=== PATIENT | male | born 1950 | race Caucasian/White ===

== ENCOUNTER 2017-06-01 05:35 | Outpatient (CLI) | payer BC ==
[~2017-06-01] VITALS: Ht 188 cm; Wt 104.3 kg
[~2017-06-01 05:35] MED LIST: FINA5TAB6 PO; ROSU20TA14 PO; TMSL.4C PO
== END 2017-06-01 11:25 | disposition home or self-care (01) ==
LOC: ENDO 05:35
PROVIDERS: ATTEND Surgery
DX: Z86.010 Personal history of colon polyps (principal); Z80.0 Family history of malignant neoplasm of digestive organs; Z53.9 Procedure and treatment not carried out, unspecified reason

== ENCOUNTER 2017-06-06 08:05 | Day surgery (SDC) | payer BC ==
[~2017-06-06] VITALS: Ht 188 cm; Wt 104.3 kg
[2017-06-06 08:10] VITALS: BP 132/84
[2017-06-06] MEDS ORDERED: NS IV 500 ML 500 ML IV PRN (08:26)
--- NOTE | 2017-06-06 08:38 | Conscious Sedation/ASA ---
Conscious Sedation Pre-Proced Time Reviewed: 08:37 ASA Class: 2 Airway Mallampati Classification: ([place] appropriate class) I. II. III, IV Lungs Heart ASA score ASA 1: a normal healthy patient ASA 2: a patient with a mild systemic disease (mid diabetes, controlled hypertension, obesity ASA 3: a patient with a severe systemic disease that limits activity (angina , COPD, prior Myocardial infarction) ASA 4: a patient with an incapacitating disease that is a constant threat to life (CHF, renal failure) ASA 5: a moribund patient not expected to survive 24 hrs. (ruptured aneurysm) ASA 6: a declared brain patient whose organs are being harvested. For emergent operations, add the letter E after the classification Grade 2 Sedation Plan: Discussed options with patient/fam Note The patient is an appropriate candidate to undergo the planned procedure, sedation, and anesthesia. The patient immediately re-assessed prior to indication. BAO CLARK MD Jun 06, 2017 8:38 am
--- NOTE | 2017-06-06 08:43 | History & Physicial ---
History of Present Illness History of Present Illness Reason for visit/HPI This gentleman presents for a screening colonoscopy. He reports that this is his fifth or sixth colonoscopy. He has a personal history of polyps, hemorrhoids , and diverticulosis. His father of colon cancer at age 80. Date of Admission 06/06/2017 Date Seen by Provider: Jun 06, 2017 I consulted on this patient on 06/06/17 08:37 Attending Physician Iván Amador MD Admitting Physician Kyaw Pierce MD Consult Allergies and Home Medications Allergies Coded Allergies: Iodinated Contrast- Oral and IV Dye (Unverified Allergy, Unknown, HIVES, ) Home Medications Finasteride 5 Mg Tablet, 5 MG PO HS, (Reported) Rosuvastatin Calcium 20 Mg Tablet, 20 MG PO HS, (Reported) Tamsulosin Hcl 0.4 Mg Cap, 0.4 MG PO HS, (Reported) Past Impyfgr-Dqlxii-Enardl Hx Patient Social History Marrital Status: Employed/Student: retired Recent Foreign Travel: No Contact w/other who traveled: No Recent Hopitalizations: No Immunizations Up To Date Date of Pneumonia Vaccine: Jul 24, 2009 Date of Influenza Vaccine: Jul 05, 2016 Seasonal Allergies Seasonal Allergies: No Reproductive System Hx Reproductive Disorders: No Sexually Transmitted Disease: No HIV/AIDS: No Gastrointestinal Polyps HEENT Loss of Vision: Denies Hearing Impairment: Denies Blood Transfusions Adverse Reaction to a Blood Tr: No (N/A) Constitutional: no symptoms reported EENTM: no symptoms reported Respiratory: no symptoms reported Cardiovascular: no symptoms reported Gastrointestinal: no symptoms reported Genitourinary: no symptoms reported Musculoskeletal: no symptoms reported Skin: no symptoms reported Psychiatric/Neurological: No Symptoms Reported All Other Systems Reviewed Negative Unless Noted: Yes Physical Exam Vital Signs Capillary Refill : General Appearance: No Apparent Distress, WD/WN Eyes: Bilateral Eye Normal Inspection, Bilateral Eye PERRL, Bilateral Eye EOMI HEENT: PERRL/EOMI, TMs Normal, Normal ENT Inspection, Pharynx Normal Neck: Full Range of Motion, Normal Inspection, Non Tender, Supple, Carotid Bruit Respiratory: Lungs Clear, Normal Breath Sounds, No Accessory Muscle Use, No Respiratory Distress Cardiovascular: Regular Rate, Rhythm, No Edema Gastrointestinal: Normal Bowel Sounds, Non Tender Rectal: Deferred Back: Normal Inspection, No CVA Tenderness, No Vertebral Tenderness Extremity: Normal Capillary Refill, Normal Inspection, Normal Range of Motion, Non Tender, No Calf Tenderness, No Pedal Edema Neurologic/Psychiatric: Alert, Oriented x3, Normal Mood/Affect Skin: Normal Color, Warm/Dry Lymphatic: No Adenopathy Assessment/Plan Assessment and Plan This gentleman is here for a screening colonoscopy. Follow up in 3 years Problems: ELAINE CROOK MEDICAL STUDENT Jun 06, 2017 08:43
[2017-06-06] MEDS: MIDAZOLAM 2 MG/2 ML (VERSED) VIAL IVP PRN ×3 (09:15→09:22)
[2017-06-06] MEDS: fentaNYL INJECTION 100 MCG/2 ML AMP IVP PRN ×4 (09:16→09:40)
--- NOTE | 2017-06-06 09:52 | Endo Procedure Record ---
Endo Procedure Report Date of Procedure Jun 06, 2017 Surgeon (s) BAO CLARK MD Post Procedure/Op Diagnosis sigmoid diverticulosis Procedure Performed colonoscopy to cecum Description of Procedure Anesthesia Type: Conscious Sedation Specimen(s) collected/removed none Description of the Procedure Indication for the procedure: This gentleman came in for surveillance colonoscopy. He has a personal history of polyps and a family history colon cancer. Informed consent was obtained after reviewing the procedure in detail. Description of procedure: He was placed in left lateral decubitus position and his vital signs were monitored. Conscious sedation was achieved using Versed and fentanyl. Digital rectal examination was unremarkable. The colonoscope was then introduced into the rectum and advanced all the way up to the cecum. The scope was then withdrawn slowly and the mucosa examined in a systematic fashion. Findings: A few sigmoid diverticula. No recurrent polyps were found. He tolerated the procedure well and was taken back to the nursing area in a stable condition. Impression: Personal history of polyps and family history of colon cancer. No recurrent polyps. Moderate sigmoid diverticulosis. Recommend surveillance colonoscopy in 5 years. Copies To: LEYDA ACUÑA MD, XAVIER M MD Jun 06, 2017 9:52 am
--- NOTE | 2017-06-06 09:53 | Discharge Inst-Simple/Standard ---
Discharge Inst-Standard Discharge Medications New, Converted or Re-Newed RX: Other Patient Instructions/Follow Up Plan of Care/Instructions/FU: repeat colonoscopy in 5 years Activity as Tolerated: Yes Discharge Diet: No Restrictions BAO CLARK MD Jun 06, 2017 9:53 am
[2017-06-06 10:05] VITALS: BP 121/75
[2017-06-06 10:40] VITALS: BP 118/74
[2017-06-06 11:15] VITALS: BP 123/85
[2017-06-06 11:50] VITALS: BP 123/85
== END 2017-06-06 11:50 | disposition home or self-care (01) ==
LOC: ENDO 08:05
PROVIDERS: ATTEND Surgery
DX: K57.30 Diverticulosis of large intestine without perforation or abscess without bleeding (principal); Z86.010 Personal history of colon polyps; Z80.0 Family history of malignant neoplasm of digestive organs